=== PATIENT | female | born 1950 | race Native Hawaiian/Other Pacific Islander ===

== ENCOUNTER 2023-02-21 14:54 | Emergency (ER) | payer OTHER ==
[~2023-02-21] VITALS: Ht 175.3 cm; Wt 54.4 kg
[2023-02-21 14:55] VITALS: BP 163/93; TEMP 98.4
[2023-02-21] MEDS ORDERED: ACET-206 PO (16:29)
[2023-02-21] MEDS ORDERED: CARB6.5S5 OTIC (16:32)
[2023-02-21] MEDS ORDERED: D31000 UNI1 PO (16:34)
[2023-02-21] MEDS ORDERED: FE TABS325 MG PO (16:34)
[2023-02-21] MEDS ORDERED: FLUD0.1T PO (16:35)
[2023-02-21] MEDS ORDERED: GABA400C2 PO (16:35)
[2023-02-21] MEDS ORDERED: PANTOPRAZOLE 40MG TA PO (16:37)
[2023-02-21] MEDS ORDERED: IMODIUM A-D2 MG PO (16:37)
[2023-02-21] MEDS ORDERED: MIDO10TAB PO (16:37)
[2023-02-21] MEDS ORDERED: NARDIL15 MG PO (16:38)
[2023-02-21] MEDS ORDERED: NATURAL ZINC50 MG PO (16:41)
[2023-02-21] MEDS ORDERED: DICL1GEL2 TOP (16:43)
[2023-02-21] MEDS ORDERED: ALBUTEROL108 MCG/AC INH (16:45)
[2023-02-21] MEDS ORDERED: CHOL4POW11 PO (16:46)
[2023-02-26] MEDS ORDERED: FERROUS SULF325 MG PO (10:10)
[2023-02-26] MEDS ORDERED: MIDODRINE5 MG PO (10:10)
[2023-02-26] MEDS ORDERED: ALBU90AE13 INH (10:10)
[2023-02-26] MEDS ORDERED: CHOL4POW11 PO (10:11)
[2023-02-26] MEDS ORDERED: ACET-206 PO ×2 (10:11→10:12)
[2023-02-26] MEDS ORDERED: GABA400C2 PO (10:12)
[2023-02-26] MEDS ORDERED: Voltaren GEL 1% 100G TOP (10:13)
[2023-02-26] MEDS ORDERED: FLUD0.1T PO (10:13)
[2023-02-26] MEDS ORDERED: PANTOPRAZOLE 40MG TA PO (10:13)
[2023-02-26] MEDS ORDERED: MAGNSUS68 PO (10:13)
[2023-02-26] MEDS ORDERED: BLOOMIS59 PO (10:14)
[2023-02-26] MEDS ORDERED: NITR100C56 PO (11:01)
== END 2023-02-21 15:55 | disposition still patient (30) ==
LOC: ED 14:54
DX: Z04.6 Encounter for general psychiatric examination, requested by authority (principal); R45.6 Violent behavior; I10 Essential (primary) hypertension; J44.9 Chronic obstructive pulmonary disease, unspecified; Z20.822 Contact with and (suspected) exposure to COVID-19
CPT/HCPCS: 81000; 87077; 87086; 87088; 87186; 87635; 99283; U0003